=== PATIENT | male | born 1940 | race Caucasian/White ===

== ENCOUNTER 2020-07-16 16:31 | Emergency (ER) | payer OTHER ==
[~2020-07-16] VITALS: Ht 162.6 cm; Wt 58.1 kg
[2020-07-16] MEDS ORDERED: GLIMEPIRIDE4 MG (17:14)
[2020-07-16] MEDS ORDERED: ATORVASTATIN CA10 MG (17:14)
[2020-07-16] MEDS ORDERED: CHILDREN'S ASPI81 MG (17:14)
[2020-07-16] MEDS ORDERED: METFORMIN HCL1000 M2 (17:14)
[2020-07-16] MEDS ORDERED: AVAPRO300 MG (17:15)
[2020-07-16] MEDS ORDERED: ATIVAN1 M1 (17:15)
[2020-07-16] MEDS ORDERED: DURACHOL 3,7751 EACH (17:15)
[2020-07-16] MEDS ORDERED: TOPROL XL25 M1 (17:15)
[2020-07-16] MEDS ORDERED: ZOLOFT25 MG (17:16)
[2020-07-16] MEDS ORDERED: ZYPREXA2.5 MG (17:16)
== END 2020-07-16 21:30 | disposition home or self-care (01) ==
LOC: ER 16:31
DX: E11.22 Type 2 diabetes mellitus with diabetic chronic kidney disease (principal); E11.65 Type 2 diabetes mellitus with hyperglycemia; M62.81 Muscle weakness (generalized); Z79.84 Long term (current) use of oral hypoglycemic drugs